=== PATIENT | male | born 1940 | race Caucasian/White ===

== ENCOUNTER 2017-05-18 08:40 | Outpatient (CLI) ==
--- NOTE | 2017-05-18 10:51 | CT ---
EXAM: CT scan of the abdomen and pelvis with contrast HISTORY: Weight loss TECHNIQUE: Imaging of the abdomen pelvis was performed following the intravenous administration of contrast. 5 mm thin axial images and coronal and sagittal reconstructions were provided for interpr etation. FINDINGS: The liver, spleen, pancreas, adrenal glands and kidneys appear normal. The proximal uret ers are normal size. The small and large bowel loops are normal caliber. No retroperitoneal abnorm alities are seen. No acute abnormalities are seen within the anterior abdominal wall. Small nonobst ructing calculi are suspected within the kidneys. The helical images obtained through the pelvis demonstrate a normal appearance of the rectum, urinar y bladder. There is no free fluid seen within the pelvis. No lytic or blastic lesions are seen wit hin the osseous structures. IMPRESSION: There is no bowel obstruction or acute inflammatory change seen within the abdomen and pelvis. Probable nonobstructing nephrolithiasis seen within the kidneys.
--- NOTE | 2017-05-18 10:55 | CT ---
EXAM: CT chest with contrast. HISTORY: Weight loss. COMPARISON: None available. TECHNIQUE: Multiple axial images of the chest were obtained following intravenous administration of 75 mL of Omnipaque 350, low osmolar. Images were reformatted in the sagittal and coronal planes. FINDINGS: Multiple mediastinal lymph nodes are present measuring up to 1.4 cm short axis in the sub carinal region on axial image 33. Nonenlarged hilar lymph nodes are present. Heart size is normal. There may be a trace amount pericardial fluid. Atherosclerotic calcifications present, extensive in the left main, left anterior descending and circumflex arteries.. Filling defect within the posterior trachea on axial image 19 measures 1 cm transverse diameter. Efe trilobular emphysematous changes present bilaterally, moderate in degree. A 0.5 cm right lower lobe nodule on axial image 41 noted. Focal linear and nodular densities in the anterolateral right uppe r lobe on axial images 28 and 29 have the appearance of scarring. No consolidation, pleural effusio n or pneumothorax identified. Limited images of the upper abdomen demonstrate no acute abnormality. Correlation with abdominal CT report from the same day recommended. Degenerative changes present in the spine.. IMPRESSION: 1. Moderate emphysema. 2. A 0.5 cm right lower lobe nodule. Follow-up in 12 months recommended for reassessment. 3. Mediastinal lymphadenopathy. This can be reassessed on follow-up unless clinical history warrant s shorter interval follow-up. 4. Possible mucus within the posterior trachea.
== END 2017-05-18 08:41 | disposition home or self-care (01) ==
LOC: RAD 08:40
PROVIDERS: ATTEND Family Medicine
DX: R63.4 Abnormal weight loss (principal); R63.0 Anorexia

== ENCOUNTER 2017-09-04 08:43 | Outpatient (CLI) ==
[2017-09-04 09:15] LABS: CREATININE 0.83 mg/dL (0.60-1.10)
--- NOTE | 2017-09-04 10:03 | CT ---
EXAM: CT chest with contrast. HISTORY: Pulmonary nodule. COMPARISON: 04/21/2017. TECHNIQUE: Multiple axial images of the chest were obtained following intravenous administration of 75 mL of Omnipaque 350, low osmolar. Images were reformatted in the sagittal and coronal planes. FINDINGS: AP window and subcarinal lymph nodes measure up to 1 cm short axis. Right hilar lymph nod e measures 1 cm short axis on axial image 32. Heart size is normal. There is a trace pericardial ef fusion. Atherosclerotic calcifications are present. Emphysematous changes present bilaterally. A 0.5 cm right lower lobe nodule on axial image 42 is sta ble. More ill-defined subpleural nodularity in the right upper lobe on axial images 26 through 30 is also stable. No consolidation, pleural effusion or pneumothorax identified. Limited images of the upper abdomen demonstrate no acute finding. No osteolytic or osteoblastic lesi ons detected. IMPRESSION: 1. Stable right lower lobe nodules. No new nodules. Follow-up CT in 9 months recommended for reass essment. 2. Stable mediastinal and right hilar lymphadenopathy. 3. Emphysema.
== END 2017-09-04 08:44 | disposition home or self-care (01) ==
LOC: RAD 08:43
PROVIDERS: ATTEND Internal Medicine Pulmonary Disease
DX: R91.1 Solitary pulmonary nodule (principal)
CPT/HCPCS: 36415; 82565

== ENCOUNTER 2018-01-29 13:38 | Outpatient (CLI) | END 2018-01-29 13:39 | disposition home or self-care (01) | LOC: NONPT 13:38 | PROVIDERS: ATTEND Family Medicine | DX: C80.1 Malignant (primary) neoplasm, unspecified (principal); J44.9 Chronic obstructive pulmonary disease, unspecified | CPT/HCPCS: 80053; 85025 ==

== ENCOUNTER 2018-02-06 23:07 | Outpatient (CLI) | END 2018-02-06 23:08 | disposition E | LOC: AMBL 23:07 | PROVIDERS: ATTEND Emergency Medicine | DX: I46.9 Cardiac arrest, cause unspecified (principal) ==